=== PATIENT | male | born 1960 | race Caucasian/White ===

== ENCOUNTER 2017-01-31 14:33 | Emergency (ER) | payer OTHER ==
[~2017-01-31] VITALS: Ht 180.3 cm; Wt 79.8 kg
[2017-01-31] MEDS ORDERED: ALBU17IN2 INH (14:43)
[2017-01-31] MEDS ORDERED: BREO1INH INH (14:43)
[2017-01-31] MEDS ORDERED: LISI10TA2 PO (14:43)
[2017-01-31] MEDS ORDERED: OMEP20CA3 PO (14:44)
[2017-01-31] MEDS ORDERED: ASPIRIN 81 MG CHEW TABLET PO ONE (15:15)
[2017-01-31 15:32] LABS: BASO % 0.4 % (0.0-1.0); EOS # 0.2 K/mm3 (0.0-0.50); EOS % 2.2 % (0.0-3.0); LARGE UNSTAINED CELL # 0.2 K/mm3 (0.0-0.4); LARGE UNSTAINED CELL % 2.1 % (0.0-4.0); LYMPH # 1.9 K/mm3 (1.5-4.5); LYMPH % 24.3 % (24.0-44.0); MEAN CORPUSCULAR HEMOGLOBIN 30.9 pg (27.0-33.0); MEAN CORPUSCULAR HGB CONC 34.7 g/dl (32.0-36.5); MEAN CORPUSCULAR VOLUME 89.2 fl (80.0-96.0); MONO # 0.5 K/mm3 (0.0-0.8); MONO % 6.2 % (0.0-5.0); NEUTROPHILS # 4.7 K/mm3 (1.8-7.7); NEUTROPHILS % 64.8 % (36.0-66.0); PLATELET COUNT, AUTOMATED 290 k/mm3 (150-450); RED CELL DISTRIBUTION WIDTH 12.4 % (11.5-14.5); WHITE BLOOD COUNT 7.3 K/mm3 (4.0-10.0)
[2017-01-31 15:53] LABS: ALBUMIN 4.3 GM/DL (3.2-5.2); ALBUMIN/GLOBULIN RATIO 1.43 (1.00-1.93); ALKALINE PHOSPHATASE 58 U/L (45-117); ALT/SGPT 24 U/L (12-78); ANION GAP 6 MEQ/L (8-16); AST/SGOT 15 U/L (15-37); BILIRUBIN,DIRECT 0.2 MG/DL (0.0-0.2); BLOOD UREA NITROGEN 21 MG/DL (7-18); CALCIUM LEVEL 8.6 MG/DL (8.5-10.1); CARBON DIOXIDE LEVEL 30 MEQ/L (21-32); CHLORIDE LEVEL 99 MEQ/L (98-107); CREATININE FOR GFR 1.07 MG/DL (0.70-1.30); GLOMERULAR FILTRATION RATE > 60.0 (>56); GLUCOSE, FASTING 116 MG/DL (70-105); SODIUM LEVEL 135 MEQ/L (136-145); TOTAL PROTEIN 7.3 GM/DL (6.4-8.2)
[2017-01-31] MEDS ORDERED: IPRATROPIUM 0.5MG/ALBUTEROL 2.5MG INH SOL UD 3ML (DUONEB)(J7620) NEB ONE (16:15)
[2017-01-31] MEDS ORDERED: methylPREDNISolone INJ 125 MG/2 ML VIAL (J2930) IV ONE (16:15)
[2017-01-31 17:37] VITALS: BP 104/58
--- NOTE | 2017-01-31 17:58 | REP ---
CT ANGIO CHEST: HISTORY: Chest pain and dyspnea. COMPARISON: None. CONTRAST: 100 mL Isovue-370 FINDINGS: There is excellent visualization of the pulmonary arterial vasculature. There are no focal filling defects present that would be considered consistent with pulmonary emboli. There are no pleural or pericardial effusions. There is no mediastinal or hilar adenopathy. The imaged upper abdomen and imaged osseous structures are within normal limits. Evaluation of the lung palmer show no abnormal nodules, masses or opacities. IMPRESSION: CT findings are within normal limits. Signed by Hitesh Hedrick DO 01/31/2017 06:28 P
--- NOTE | 2017-01-31 18:13 | ECGEPIP ---
Stationary ECG Study [facility] - ED Test Date: 2017-01-31 Pat Name: FLORENCIO BROOKS Department: Room: - Gender: M Clinic Specialist: ct : 1960 Requested By: PATRICIO Cardenas Order Number: [id number] Reading MD: Melvin Zavala Measurements Intervals [place] Rate: 69 P: 67 [place]: 146 QRS: 62 QRSD: 88 T: 60 QT: 387 QTc: 417 Interpretive Statements SINUS RHYTHM Electronically Signed On 01-31-2017 18:12:51 EDT by Melvin Zavala
== END 2017-01-31 18:01 | disposition home or self-care (01) ==
LOC: M ED 16:02
DX: R07.9 Chest pain, unspecified (principal); R06.02 Shortness of breath; J44.9 Chronic obstructive pulmonary disease, unspecified; I10 Essential (primary) hypertension; Z87.891 Personal history of nicotine dependence; Z79.899 Other long term (current) drug therapy; Z79.51 Long term (current) use of inhaled steroids; Z88.1 Allergy status to other antibiotic agents
CPT/HCPCS: 71275; 80048; 80076; 82550; 82553; 83880; 85025; 93005; 93041; 94640; 94760; 96374; 99284; J2930

== ENCOUNTER → 2017-03-15 | Outpatient (CLI) | payer OTHER ==
[~2017-03-15] MED LIST: ALBU17IN2 INH; BREO1INH INH; LISI10TA2 PO; OMEP20CA3 PO
[2017-03-15 10:58] LABS: BASO % 0.4 % (0.0-1.0); EOS # 0.1 K/mm3 (0.0-0.50); EOS % 1.3 % (0.0-3.0); LYMPH # 1.5 K/mm3 (1.5-4.5); LYMPH % 24.7 % (24.0-44.0); MEAN CORPUSCULAR HEMOGLOBIN 30.9 pg (27.0-33.0); MEAN CORPUSCULAR HGB CONC 33.7 g/dl (32.0-36.5); MEAN CORPUSCULAR VOLUME 91.6 fl (80.0-96.0); MONO # 0.4 K/mm3 (0.0-0.8); MONO % 6.9 % (0.0-5.0); NEUTROPHILS # 3.6 K/mm3 (1.8-7.7); NEUTROPHILS % 65.1 % (36.0-66.0); RED CELL DISTRIBUTION WIDTH 12.8 % (11.5-14.5); WHITE BLOOD COUNT 5.6 K/mm3 (4.0-10.0)
[2017-03-15 11:31] LABS: ALBUMIN 4.3 GM/DL (3.2-5.2); ALBUMIN/GLOBULIN RATIO 1.54 (1.00-1.93); ALKALINE PHOSPHATASE 53 U/L (45-117); ALT/SGPT 34 U/L (12-78); ANION GAP 5 MEQ/L (8-16); AST/SGOT 14 U/L (15-37); BILIRUBIN,TOTAL 0.6 MG/DL (0.2-1.0); BLOOD UREA NITROGEN 11 MG/DL (7-18); CALCIUM LEVEL 9.6 MG/DL (8.5-10.1); CARBON DIOXIDE LEVEL 32 MEQ/L (21-32); CHLORIDE LEVEL 100 MEQ/L (98-107); CHOLESTEROL LEVEL 157 MG/DL (<200); CREATININE FOR GFR 1.14 MG/DL (0.70-1.30); GLOMERULAR FILTRATION RATE > 60.0 (>56); GLUCOSE, FASTING 105 MG/DL (70-105); SODIUM LEVEL 137 MEQ/L (136-145); TOTAL PROTEIN 7.1 GM/DL (6.4-8.2); TRIGLYCERIDES LEVEL 61 MG/DL (<150)
[2017-03-15 11:35] LABS: POTASSIUM SERUM 5.4 MEQ/L (3.5-5.1)
== END ==
LOC: M LAB 10:11
PROVIDERS: ATTEND Physician Assistant Medical
DX: I10 Essential (primary) hypertension (principal)

== ENCOUNTER → 2017-03-25 | Outpatient (CLI) | payer OTHER ==
[2017-03-25 11:12] LABS: BASO # 0.1 K/mm3 (0.0-0.2); BASO % 0.9 % (0.0-1.0); EOS # 0.1 K/mm3 (0.0-0.50); EOS % 1.5 % (0.0-3.0); LYMPH # 1.8 K/mm3 (1.5-4.5); LYMPH % 23.1 % (24.0-44.0); MEAN CORPUSCULAR HEMOGLOBIN 30.7 pg (27.0-33.0); MEAN CORPUSCULAR HGB CONC 34.2 g/dl (32.0-36.5); MEAN CORPUSCULAR VOLUME 89.8 fl (80.0-96.0); MONO # 0.6 K/mm3 (0.0-0.8); NEUTROPHILS # 4.5 K/mm3 (1.8-7.7); NEUTROPHILS % 64.4 % (36.0-66.0); RED CELL DISTRIBUTION WIDTH 13.1 % (11.5-14.5); WHITE BLOOD COUNT 6.9 K/mm3 (4.0-10.0)
[2017-03-25 11:53] LABS: ALBUMIN 4.4 GM/DL (3.2-5.2); ALBUMIN/GLOBULIN RATIO 1.69 (1.00-1.93); ALKALINE PHOSPHATASE 49 U/L (45-117); ALT/SGPT 31 U/L (12-78); ANION GAP 8 MEQ/L (8-16); AST/SGOT 29 U/L (15-37); BILIRUBIN,TOTAL 0.9 MG/DL (0.2-1.0); BLOOD UREA NITROGEN 18 MG/DL (7-18); CALCIUM LEVEL 9.2 MG/DL (8.5-10.1); CARBON DIOXIDE LEVEL 29 MEQ/L (21-32); CHLORIDE LEVEL 99 MEQ/L (98-107); CHOLESTEROL LEVEL 140 MG/DL (<200); CREATININE FOR GFR 0.97 MG/DL (0.70-1.30); GLOMERULAR FILTRATION RATE > 60.0 (>56); GLUCOSE, FASTING 84 MG/DL (70-105); POTASSIUM SERUM 3.5 MEQ/L (3.5-5.1); SODIUM LEVEL 136 MEQ/L (136-145); TRIGLYCERIDES LEVEL 53 MG/DL (<150)
== END ==
LOC: M LAB 10:57
PROVIDERS: ATTEND Physician Assistant Medical
DX: I10 Essential (primary) hypertension (principal)

== ENCOUNTER 2017-12-25 14:31 | Emergency (ER) | payer OTHER | END 2017-12-25 17:39 | disposition home or self-care (01) | LOC: M ED 14:31 | DX: J44.1 Chronic obstructive pulmonary disease with (acute) exacerbation (principal); J01.10 Acute frontal sinusitis, unspecified; I10 Essential (primary) hypertension; Z87.891 Personal history of nicotine dependence; F12.10 Cannabis abuse, uncomplicated; Z79.899 Other long term (current) drug therapy; Z88.1 Allergy status to other antibiotic agents | CPT/HCPCS: 99282 ==

== ENCOUNTER → 2018-08-01 | Outpatient (CLI) | payer OTHER ==
[2018-08-01 11:47] LABS: HEMATOCRIT 42.3 % (42.0-52.0); HEMOGLOBIN 14.4 g/dl (13.5-17.5); MEAN CORPUSCULAR HEMOGLOBIN 30.7 pg (27.0-33.0); MEAN CORPUSCULAR VOLUME 90.2 fl (80.0-96.0); PLATELET COUNT, AUTOMATED 254 10^3/uL (150-450); RED BLOOD COUNT 4.69 10^6/uL (4.30-6.10); WHITE BLOOD COUNT 9.7 10^3/uL (4.0-10.0)
[2018-08-01 12:01] LABS: ESTIMATED AVERAGE GLUCOSE 123 MG/DL (60-110); HEMOGLOBIN A1c 5.9 %
[2018-08-01 12:21] LABS: ALBUMIN 3.8 GM/DL (3.2-5.2); ALBUMIN/GLOBULIN RATIO 1.31 (1.00-1.93); ALKALINE PHOSPHATASE 65 U/L (45-117); ALT/SGPT 37 U/L (12-78); ANION GAP 4 MEQ/L (8-16); AST/SGOT 27 U/L (7-37); BILIRUBIN,TOTAL 0.8 MG/DL (0.2-1.0); BLOOD UREA NITROGEN 17 MG/DL (7-18); CALCIUM LEVEL 8.8 MG/DL (8.5-10.1); CARBON DIOXIDE LEVEL 32 MEQ/L (21-32); CHLORIDE LEVEL 103 MEQ/L (98-107); CHOLESTEROL LEVEL 142 MG/DL (<200); CHOLESTEROL RISK RATIO 2.327 (<5); CREATININE FOR GFR 0.96 MG/DL (0.70-1.30); GLOMERULAR FILTRATION RATE > 60.0 (>56); GLUCOSE, FASTING 105 MG/DL (70-100); HDL CHOLESTEROL 61 MG/DL (>40); LDL CHOLESTEROL 70 MG/DL (<100); NON-HDL-C 81 MG/DL; POTASSIUM SERUM 4.5 MEQ/L (3.5-5.1); PROSTATIC SPECIFIC AG MONITOR 2.03 NG/ML (< 4.0); SODIUM LEVEL 139 MEQ/L (136-145); TESTOSTERONE 344 NG/DL (241-827); TOTAL PROTEIN 6.7 GM/DL (6.4-8.2); TRIGLYCERIDES LEVEL 53 MG/DL (<150)
== END ==
LOC: M LAB 11:13
DX: I10 Essential (primary) hypertension (principal); J44.9 Chronic obstructive pulmonary disease, unspecified; N40.0 Benign prostatic hyperplasia without lower urinary tract symptoms
CPT/HCPCS: 71046

== ENCOUNTER 2018-11-28 09:44 | Emergency (ER) | payer OTHER ==
[~2018-11-28] VITALS: Ht 180.3 cm; Wt 77.3 kg
[~2018-11-28 09:44] MED LIST changes: +AUGM875T28 PO
[2018-11-28 10:23] LABS: BASO % 0.2 % (0.0-1.0); EOS % 0.1 % (0.0-3.0); HEMATOCRIT 43.6 % (42.0-52.0); HEMOGLOBIN 15.7 g/dl (13.5-17.5); LYMPH # 1.2 10^3/uL (1.5-4.5); LYMPH % 9.8 % (24.0-44.0); MEAN CORPUSCULAR HEMOGLOBIN 31.3 pg (27.0-33.0); MONO # 0.8 10^3/uL (0.0-0.8); MONO % 6.6 % (0.0-5.0); NEUTROPHILS # 9.9 10^3/uL (1.8-7.7); NEUTROPHILS % 82.9 % (36.0-66.0); PLATELET COUNT, AUTOMATED 337 10^3/uL (150-450); RED BLOOD COUNT 5.01 10^6/uL (4.30-6.10); WHITE BLOOD COUNT 11.9 10^3/uL (4.0-10.0)
[2018-11-28] MEDS ORDERED: MORPHINE 4 MG/ML 1ML VIAL/SYRINGE (J2270) IV ONE (10:30)
[2018-11-28] MEDS ORDERED: ONDANSETRON 4MG/2ML VIAL (J2405) IV ONE (10:30)
[2018-11-28] MEDS ORDERED: NS 1,000 ML IV ONE (10:30)
[2018-11-28 10:49] LABS: ALBUMIN 4.4 GM/DL (3.2-5.2); ALT/SGPT 29 U/L (12-78); BILIRUBIN,DIRECT 0.3 MG/DL (0.0-0.2); BILIRUBIN,TOTAL 1.2 MG/DL (0.2-1.0); BLOOD UREA NITROGEN 16 MG/DL (7-18); CARBON DIOXIDE LEVEL 24 MEQ/L (21-32); CHLORIDE LEVEL 99 MEQ/L (98-107); CREATININE FOR GFR 1.18 MG/DL (0.70-1.30); GLOMERULAR FILTRATION RATE > 60.0 (>56); GLUCOSE, FASTING 152 MG/DL (70-100); LIPASE 128 U/L (73-393); POTASSIUM SERUM 3.1 MEQ/L (3.5-5.1); SODIUM LEVEL 136 MEQ/L (136-145); TOTAL PROTEIN 7.7 GM/DL (6.4-8.2)
[2018-11-28] MEDS: GASTROGRAFIN SOLUTION 30ML PO SCH ×2 (10:50→11:20)
[2018-11-28] MEDS ORDERED: ISOVUE-370 76% 100ML VIAL (Q9967) As Ordered ONE (12:00)
--- NOTE | 2018-11-28 13:38 | REP ---
CT ABDOMEN AND PELVIS WITH IV AND ORAL CONTRAST: 11/28/2018. Clinical history: Generalized abdominal pain, vomiting. Technique: Oral Gastrografin mixture per our protocol for bowel contrast and bolus of 100 mL Isovue 370 scanning through the abdomen and pelvis with coronal and sagittal reconstructions provided. Findings: CT abdomen: The lung bases are clear. The heart is not enlarged and there is no pericardial thickening or effusion. I see no definite hiatal hernia. Stomach filled with retained contrast which extends into the mid jejunum. The liver, spleen, gallbladder, pancreas and the adrenal glands were normal. No calcified gallstones. Kidneys show no stone, cyst, solid mass, perinephric fluid, hydronephrosis or hydroureter on either side. No ureteral stone. The lung windows for all CT slices of the abdomen pelvis show no perforation or free air. No abscess. Abdominal portions of the colon shows scattered stool and gas on the right. The transverse colon, splenic flexure and left colon are collapsed and smaller caliber. I do not see inflammatory changes in the adjacent fat. Small bowel loops show a few air-fluid levels in proximal loops which are mildly prominent but not significantly dilated and with no sign of obstruction or wall thickening. Most of them are fluid filled. I do not see thickened wall. The bone windows show degenerative disc changes and vacuum phenomenon at L5-S1, minor degenerative disc changes in the lower thoracic spine. No acute compression deformity, spondylolysis or other acute finding. CT pelvis: The visualized bones are grossly intact, other than one small bone cyst in the femoral neck on the right about 12 mm. The distal left colon and sigmoid are collapsed. Stool and gas in the rectum. There is no sign of diverticulitis with just a few scattered diverticula in the sigmoid. The distal left colon and proximal sigmoid are collapsed. Stool and gas in the distal sigmoid and rectum. There is no ventral or inguinal hernia nor pathologic sized inguinal adenopathy. No inflammatory changes about the cecum. Prostate with calcifications. Bladder only minimally filled with wall thickness difficult to municipal court judge. No mass or stone. Impression: 1. Transverse and left colon as well as most of the splenic flexure are collapsed with thickened wall down to the proximal sigmoid. I do not see significant inflammatory changes in the adjacent fat but this may reflect some mild colitis. No diverticulitis. 2. Small bowel loops fluid-filled with a few air-fluid levels proximally that may reflect gastroenteritis or focal ileus. 3. No ascites, abscess, free air, adenopathy or abnormalities of the solid organs in the upper abdomen. No hiatal hernia. No ventral or inguinal hernia. Electronically Signed by Chinedu Orosco MD 11/28/2018 09:20 P
[2018-11-28] MEDS ORDERED: POTASSIUM CHLORIDE 10 MEQ SR TABLET PO ONE (15:00)
[2018-11-28] MEDS ORDERED: metroNIDAZOLE (FLAGYL) 500 MG TAB PO ONE (15:15)
[2018-11-28] MEDS ORDERED: CIPROFLOXACIN 500 MG TAB PO ONE (15:15)
[2018-11-28] MEDS ORDERED: CIPR-249 PO (16:21)
[2018-11-28] MEDS ORDERED: FLAG500T PO (16:22)
[2018-11-28] MEDS ORDERED: ZOFR4TAB16 PO (16:22)
[2018-11-28 16:48] VITALS: BP 122/62
== END 2018-11-28 17:43 | disposition home or self-care (01) ==
LOC: M ED 09:44 → EDBD 09:44 → M ED 17:43
DX: K52.9 Noninfective gastroenteritis and colitis, unspecified (principal); J44.9 Chronic obstructive pulmonary disease, unspecified; J45.909 Unspecified asthma, uncomplicated; K21.9 Gastro-esophageal reflux disease without esophagitis; Z79.899 Other long term (current) drug therapy; Z88.1 Allergy status to other antibiotic agents; F17.210 Nicotine dependence, cigarettes, uncomplicated
CPT/HCPCS: 74177; 80048; 80076; 83690; 85025; 93041; 96374; 96375; 99285; J2270; J2405; Q9963; Q9967

== ENCOUNTER 2019-09-09 21:02 | Emergency (ER) | payer OTHER ==
[~2019-09-09] VITALS: Ht 180.3 cm; Wt 77.0 kg
[~2019-09-09 21:02] MED LIST changes: +CIPR-249 PO; +FLAG500T PO; +LISI10TA15 PO; -LISI10TA2 PO; +OMEP-172 PO; -OMEP20CA3 PO; +ZOFR4TAB16 PO
[2019-09-09 21:48] LABS: HEMATOCRIT 40.5 % (42.0-52.0); HEMOGLOBIN 13.7 g/dl (13.5-17.5); MEAN CORPUSCULAR HEMOGLOBIN 31.3 pg (27.0-33.0); MEAN CORPUSCULAR HGB CONC 33.8 g/dl (32.0-36.5); MEAN CORPUSCULAR VOLUME 92.5 fl (80.0-96.0); PLATELET COUNT, AUTOMATED 248 10^3/uL (150-450); RED BLOOD COUNT 4.38 10^6/uL (4.30-6.10); WHITE BLOOD COUNT 13.1 10^3/uL (4.0-10.0)
[2019-09-09 22:09] LABS: ALBUMIN 4.1 GM/DL (3.2-5.2); ALT/SGPT 70 U/L (12-78); BILIRUBIN,TOTAL 0.9 MG/DL (0.2-1.0); BLOOD UREA NITROGEN 15 MG/DL (7-18); CALCIUM LEVEL 9.6 MG/DL (8.5-10.1); CARBON DIOXIDE LEVEL 25 MEQ/L (21-32); CHLORIDE LEVEL 105 MEQ/L (98-107); CREATININE FOR GFR 1.02 MG/DL (0.70-1.30); GLOMERULAR FILTRATION RATE > 60.0 (>56); GLUCOSE, FASTING 126 MG/DL (70-100); LIPASE 78 U/L (73-393); POTASSIUM SERUM 3.5 MEQ/L (3.5-5.1); SODIUM LEVEL 142 MEQ/L (136-145); TOTAL PROTEIN 6.9 GM/DL (6.4-8.2)
[2019-09-09] MEDS ORDERED: NS 1,000 ML IV ONE (23:00)
[2019-09-09] MEDS ORDERED: ONDANSETRON 4MG/2ML VIAL (J2405) IV ONE (23:00)
[2019-09-09] MEDS ORDERED: MORPHINE 4 MG/ML 1ML VIAL/SYRINGE (J2270) IV ONE (23:00)
[2019-09-09] MEDS ORDERED: ISOVUE-370 76% 100ML VIAL (Q9967) As Ordered ONE (23:44)
--- NOTE | 2019-09-10 00:53 | REPVR ---
PROCEDURE INFORMATION: Exam: CT Abdomen And Pelvis With Contrast Exam date and time: 09/09/2019 12:05 AM Age: 59 years old Clinical history: Abdominal pain; Localized; Left lower quadrant (llq); Additional info: Llq tender, nvd, HX divertic TECHNIQUE: Imaging protocol: Computed tomography of the abdomen and pelvis with intravenous contrast. Radiation optimization: All CT scans at this facility use at least one of these dose optimization techniques: automated exposure control; mA and/or kV adjustment per patient size (includes targeted exams where dose is matched to clinical indication); or iterative reconstruction. Contrast material: ISOVUE 370; Contrast volume: 100 ml; Contrast route: IV; COMPARISON: CT ABD/PEL W/IV ORAL CONTRAS 11/28/2018 12:24 PM FINDINGS: Liver: Normal. No mass. Gallbladder and bile ducts: Normal. No calcified stones. No ductal dilation. Pancreas: Normal. No ductal dilation. Spleen: Normal. No splenomegaly. Adrenals: Normal. No mass. Kidneys and ureters: Normal. No hydronephrosis. Stomach and bowel: Unremarkable. No obstruction. No mucosal thickening. Appendix: No evidence of appendicitis. Intraperitoneal space: Unremarkable. No free air. No significant fluid collection. Vasculature: Unremarkable. No abdominal aortic aneurysm. Lymph nodes: Unremarkable. No enlarged lymph nodes. Bladder: Mild urinary bladder wall thickening. Reproductive: Unremarkable as visualized. Bones/joints: There are degenerative changes in the spine and pelvis. Soft tissues: Unremarkable. IMPRESSION: 1. Mild urinary bladder wall thickening suggesting cystitis. 2. No acute inflammatory process in the GI tract or bowel obstruction. Electronically signed by: Shad Leon On 09/10/2019 00:52:40 AM
[2019-09-10] MEDS ORDERED: DICYCLOMINE 10 MG CAP PO ONE (01:45)
[2019-09-10] MEDS ORDERED: DICY10CA13 PO (01:53)
[2019-09-10] MEDS ORDERED: REGL10TA6 PO (01:53)
[2019-09-10 02:02] VITALS: BP 121/64
== END 2019-09-10 02:04 | disposition home or self-care (01) ==
LOC: M ED 21:02
DX: R10.84 Generalized abdominal pain (principal); D72.829 Elevated white blood cell count, unspecified; R11.10 Vomiting, unspecified; R19.7 Diarrhea, unspecified; I10 Essential (primary) hypertension; J44.9 Chronic obstructive pulmonary disease, unspecified; K21.9 Gastro-esophageal reflux disease without esophagitis; K57.92 Diverticulitis of intestine, part unspecified, without perforation or abscess without bleeding; Z88.1 Allergy status to other antibiotic agents; Z79.899 Other long term (current) drug therapy
CPT/HCPCS: 74177; 80053; 81001; 83690; 85027; 87086; 96361; 96374; 96375; 99284; J2270; J2405; Q9967

== ENCOUNTER 2019-09-14 02:36 | Emergency (ER) | payer OTHER ==
[~2019-09-14] VITALS: Ht 180.3 cm; Wt 72.9 kg
[~2019-09-14 02:36] MED LIST changes: +DICY10CA13 PO; +REGL10TA6 PO
[2019-09-14 04:31] LABS: BASO % 0.3 % (0.0-1.0); EOS # 0.1 10^3/uL (0.0-0.5); EOS % 0.5 % (0.0-3.0); HEMATOCRIT 44.3 % (42.0-52.0); HEMOGLOBIN 15.4 g/dl (13.5-17.5); LYMPH # 1.7 10^3/uL (1.5-5.0); LYMPH % 14.9 % (24.0-44.0); MEAN CORPUSCULAR HEMOGLOBIN 30.7 pg (27.0-33.0); MEAN CORPUSCULAR HGB CONC 34.8 g/dl (32.0-36.5); MEAN CORPUSCULAR VOLUME 88.4 fl (80.0-96.0); MONO # 1.2 10^3/uL (0.0-0.8); MONO % 10.4 % (0.0-5.0); NEUTROPHILS # 8.5 10^3/uL (1.5-8.5); NEUTROPHILS % 73.5 % (36.0-66.0); PLATELET COUNT, AUTOMATED 272 10^3/uL (150-450); RED BLOOD COUNT 5.01 10^6/uL (4.30-6.10); WHITE BLOOD COUNT 11.5 10^3/uL (4.0-10.0)
[2019-09-14 04:48] LABS: INR 1.11
[2019-09-14 04:49] LABS: PARTIAL THROMBOPLASTIN TIME 26.3 SECONDS (25.0-38.4)
[2019-09-14 05:09] LABS: ALBUMIN 3.8 GM/DL (3.2-5.2); ALT/SGPT 45 U/L (12-78); BILIRUBIN,DIRECT 0.3 MG/DL (0.0-0.2); BILIRUBIN,TOTAL 1.4 MG/DL (0.2-1.0); BLOOD UREA NITROGEN 12 MG/DL (7-18); CALCIUM LEVEL 8.8 MG/DL (8.5-10.1); CARBON DIOXIDE LEVEL 29 MEQ/L (21-32); CHLORIDE LEVEL 101 MEQ/L (98-107); CK-MB VALUE MASS 1.2 NG/ML (<3.6); CPK CREATINE PHOSPHOKINASE 88 U/L (39-308); CREATININE FOR GFR 0.86 MG/DL (0.70-1.30); GLOMERULAR FILTRATION RATE > 60.0 (>56); GLUCOSE, FASTING 103 MG/DL (70-100); LIPASE 90 U/L (73-393); MB/CK RELATIVE INDEX 1.36 (< OR =4); POTASSIUM SERUM 3.4 MEQ/L (3.5-5.1); SODIUM LEVEL 139 MEQ/L (136-145); TOTAL PROTEIN 6.7 GM/DL (6.4-8.2); TROPONIN I < 0.02 NG/ML (< 0.10)
[2019-09-14] MEDS ORDERED: PANTOPRAZOLE 40MG INJ (PROTONIX) (C9113) IV ONE (05:15)
[2019-09-14] MEDS ORDERED: NS 1,000 ML IV ONE (05:15)
[2019-09-14] MEDS ORDERED: GI COCKTAIL 50ML BTL(HYOSCYAMINE/MAALOX/LIDOCAINE VISCOUS)(1:3:1) PO ONE (05:15)
--- NOTE | 2019-09-14 08:02 | ECGEPIP ---
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
[2019-09-14 10:51] VITALS: BP 146/80
== END 2019-09-14 10:58 | disposition home or self-care (01) ==
LOC: M ED 02:36
DX: K52.9 Noninfective gastroenteritis and colitis, unspecified (principal); I10 Essential (primary) hypertension; K21.9 Gastro-esophageal reflux disease without esophagitis; J45.909 Unspecified asthma, uncomplicated; F17.210 Nicotine dependence, cigarettes, uncomplicated; Z88.1 Allergy status to other antibiotic agents; Z79.51 Long term (current) use of inhaled steroids; Z79.84 Long term (current) use of oral hypoglycemic drugs; Z79.899 Other long term (current) drug therapy
CPT/HCPCS: 80048; 80076; 82550; 82553; 83605; 83690; 85025; 85610; 85730; 87507; 93005; 96374; 99284; C9113

== ENCOUNTER 2021-05-14 23:56 | Emergency (ER) | payer OTHER ==
[~2021-05-14] VITALS: Ht 180.3 cm; Wt 77.7 kg
[~2021-05-14 23:56] MED LIST changes: -OMEP-172 PO; +OMEP1CAP73 PO
[2021-05-15] MEDS ORDERED: AMOX500C PO (00:09)
[2021-05-15 06:41] LABS: BASO % 0.1 % (0.0-1.0); HEMATOCRIT 45.8 % (42.0-52.0); HEMOGLOBIN 15.9 g/dl (13.5-17.5); LYMPH # 0.9 10^3/uL (1.5-5.0); LYMPH % 11.5 % (24.0-44.0); MEAN CORPUSCULAR HEMOGLOBIN 30.6 pg (27.0-33.0); MEAN CORPUSCULAR HGB CONC 34.7 g/dl (32.0-36.5); MEAN CORPUSCULAR VOLUME 88.1 fl (80.0-96.0); MONO # 0.3 10^3/uL (0.0-0.8); MONO % 4.2 % (2.0-8.0); NEUTROPHILS # 6.6 10^3/uL (1.5-8.5); NEUTROPHILS % 83.9 % (36.0-66.0); PLATELET COUNT, AUTOMATED 292 10^3/uL (150-450); WHITE BLOOD COUNT 7.9 10^3/uL (4.0-10.0)
[2021-05-15] MEDS ORDERED: PANTOPRAZOLE 40MG VIAL (C9113 PER 1) IV ONE (06:50)
[2021-05-15] MEDS ORDERED: NS 1,000 ML IV ONE (06:50)
[2021-05-15 07:16] LABS: ALBUMIN 4.6 GM/DL (3.2-5.2); ALT/SGPT 31 U/L (12-78); BILIRUBIN,DIRECT 0.2 MG/DL (0.0-0.2); BILIRUBIN,TOTAL 0.7 MG/DL (0.2-1.0); BLOOD UREA NITROGEN 24 MG/DL (7-18); CALCIUM LEVEL 9.6 MG/DL (8.8-10.2); CARBON DIOXIDE LEVEL 26 MEQ/L (21-32); CHLORIDE LEVEL 103 MEQ/L (98-107); CREATININE FOR GFR 1.05 MG/DL (0.70-1.30); GLOMERULAR FILTRATION RATE > 60.0 (>49); GLUCOSE, FASTING 119 MG/DL (70-100); LIPASE 259 U/L (73-393); POTASSIUM SERUM 4.4 MEQ/L (3.5-5.1); SODIUM LEVEL 138 MEQ/L (136-145); TOTAL PROTEIN 8.3 GM/DL (6.4-8.2)
[2021-05-15 08:38] VITALS: BP 160/86
== END 2021-05-15 08:41 | disposition home or self-care (01) ==
LOC: M ED 23:56
DX: R10.84 Generalized abdominal pain (principal); E86.0 Dehydration; R94.4 Abnormal results of kidney function studies; I10 Essential (primary) hypertension; K52.9 Noninfective gastroenteritis and colitis, unspecified; J44.9 Chronic obstructive pulmonary disease, unspecified; K21.9 Gastro-esophageal reflux disease without esophagitis; Z87.891 Personal history of nicotine dependence; Z88.8 Allergy status to other drugs, medicaments and biological substances; Z79.899 Other long term (current) drug therapy
CPT/HCPCS: 80048; 80076; 81001; 83690; 85025; 96361; 96374; 99284; C9113

== ENCOUNTER → 2021-06-25 | Outpatient (CLI) | payer OTHER ==
[~2021-06-25] MED LIST changes: +AMOX500C PO
[2021-06-25 12:59] LABS: HEMATOCRIT 43.2 % (42.0-52.0); HEMOGLOBIN 14.7 g/dl (13.5-17.5); MEAN CORPUSCULAR HEMOGLOBIN 30.6 pg (27.0-33.0); PLATELET COUNT, AUTOMATED 305 10^3/uL (150-450); WHITE BLOOD COUNT 9.9 10^3/uL (4.0-10.0)
[2021-06-25 13:36] LABS: ALBUMIN 3.9 GM/DL (3.2-5.2); ALT/SGPT 25 U/L (12-78); BILIRUBIN,TOTAL 0.7 MG/DL (0.2-1.0); BLOOD UREA NITROGEN 16 MG/DL (7-18); CARBON DIOXIDE LEVEL 29 MEQ/L (21-32); CHLORIDE LEVEL 105 MEQ/L (98-107); CHOLESTEROL LEVEL 179 MG/DL (<200); CHOLESTEROL RISK RATIO 3.977 (<5); CREATININE FOR GFR 0.95 MG/DL (0.70-1.30); GLOMERULAR FILTRATION RATE > 60.0 (>49); GLUCOSE, FASTING 96 MG/DL (70-100); HDL CHOLESTEROL 45 MG/DL (>40); LDL CHOLESTEROL 119 MG/DL (<100); NON-HDL-C 134 MG/DL; POTASSIUM SERUM 4.2 MEQ/L (3.5-5.1); PROSTATIC SPECIFIC AG MONITOR 3.92 NG/ML (< 4.00); SODIUM LEVEL 140 MEQ/L (136-145); TESTOSTERONE 361 NG/DL (241-827); THYROID STIMULATING HORMONE 0.624 uIU/ML (0.358-3.740); TOTAL PROTEIN 6.9 GM/DL (6.4-8.2); TRIGLYCERIDES LEVEL 77 MG/DL (<150)
[2021-06-25 13:41] LABS: HEMOGLOBIN A1c 5.7 %
--- NOTE | 2021-06-25 14:19 | REP ---
INDICATION: HTN,FATIGUE,HYPOTHYROID-LABS AND EKG FIRST. COMPARISON: 08/01/2018 the latest prior FINDINGS: The superior mediastinal structures are midline. The cardiac silhouette is unremarkable in size, shape, and position. The diaphragmatic surfaces of the lungs are regular, and the costophrenic angles are clear. The pulmonary palmer are clear. The imaged osseous structures are intact. IMPRESSION: There is no acute cardiopulmonary disease. <Electronically signed by Hitesh Hedrick > 06/25/21 [id number]
--- NOTE | 2021-06-25 19:25 | ECGEPIP ---
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
== END ==
LOC: M LAB 12:26
PROVIDERS: ATTEND Family Medicine
DX: E03.9 Hypothyroidism, unspecified (principal); R53.83 Other fatigue; I10 Essential (primary) hypertension

== ENCOUNTER 2021-10-17 17:11 | Emergency (ER) | payer OTHER ==
[~2021-10-17] VITALS: Ht 180.3 cm; Wt 78.6 kg
[~2021-10-17 17:11] MED LIST changes: -LISI10TA15 PO; +LISI10TA24 PO
[2021-10-17 17:13] VITALS: BP 151/83
[2021-10-17] MEDS ORDERED: LISI5TAB11 (17:19)
[2021-10-17] MEDS ORDERED: FLUT1BLS5 (17:19)
== END 2021-10-17 19:05 | disposition home or self-care (01) ==
LOC: M ED 17:11
DX: T18.108A Unspecified foreign body in esophagus causing other injury, initial encounter (principal); I10 Essential (primary) hypertension; J44.9 Chronic obstructive pulmonary disease, unspecified; Z88.1 Allergy status to other antibiotic agents

== ENCOUNTER → 2021-11-25 | Outpatient (CLI) | payer OTHER ==
[~2021-11-25] MED LIST changes: +FLUT1BLS5; +LISI5TAB11
== END ==
LOC: M RAD 14:46
PROVIDERS: ATTEND Family Medicine
DX: M19.011 Primary osteoarthritis, right shoulder (principal)

== ENCOUNTER 2025-01-17 19:41 | Emergency (ER) | payer OTHER ==
[~2025-01-17] VITALS: Ht 180.3 cm; Wt 89.5 kg
[~2025-01-17 19:41] MED LIST changes: +DICY-61 PO; -DICY10CA13 PO
[2025-01-17 20:26] LABS: BASO % 0.3 % (0.0-1.0); EOS % 0.1 % (0.0-3.0); HEMATOCRIT 47.3 % (42.0-52.0); HEMOGLOBIN 16.2 g/dl (13.5-17.5); LYMPH # 1.7 10^3/uL (1.5-5.0); LYMPH % 14.8 % (24.0-44.0); MEAN CORPUSCULAR HEMOGLOBIN 30.2 pg (27.0-33.0); MEAN CORPUSCULAR HGB CONC 34.2 g/dl (32.0-36.5); MEAN CORPUSCULAR VOLUME 88.1 fl (80.0-96.0); MONO # 0.9 10^3/uL (0.0-0.8); MONO % 8.2 % (2.0-8.0); NEUTROPHILS # 8.7 10^3/uL (1.5-8.5); NEUTROPHILS % 76.2 % (36.0-66.0); PLATELET COUNT, AUTOMATED 328 10^3/uL (150-450); RED BLOOD COUNT 5.37 10^6/uL (4.30-6.10); WHITE BLOOD COUNT 11.4 10^3/uL (4.0-10.0)
[2025-01-17 20:47] LABS: LIPASE 26 U/L (12-53)
[2025-01-17 20:49] LABS: ALBUMIN 4.3 G/DL (3.2-5.2); ALKALINE PHOSPHATASE 72 U/L (40-129); ALT/SGPT 24 U/L (7.0-40); AST/SGOT 20 U/L (<34); BILIRUBIN,DIRECT 0.4 MG/DL (<0.4); BILIRUBIN,TOTAL 1.4 MG/DL (0.3-1.2); BLOOD UREA NITROGEN 19 MG/DL (9-23); CALCIUM LEVEL 9.8 MG/DL (8.3-10.6); CARBON DIOXIDE LEVEL 27 MMOL/L (20-31); CHLORIDE LEVEL 100 MMOL/L (98-107); CREATININE FOR GFR 0.91 MG/DL (0.70-1.30); GLOMERULAR FILTRATION RATE > 90.0 (>49); GLUCOSE, FASTING 109 MG/DL (74-106); POTASSIUM SERUM 4.1 MMOL/L (3.5-5.1); SODIUM LEVEL 140 MMOL/L (136-145); TOTAL PROTEIN 7.6 G/DL (5.7-8.2)
[2025-01-17 21:10] LABS: KETONE, URINE AUTO RFX 1+ mg/dL (NEGATIVE); LEUKOCYTE ESTERASE UR AUTO RFX NEGATIVE (NEGATIVE); MUCUS, URINE RFX LARGE (NEGATIVE); NITRITE, URINE AUTO RFX NEGATIVE (NEGATIVE); RBC, URINE AUTO RFX 1 /HPF (0-3); SQUAM EPITHELIAL CELL UR AURFX 1 /HPF (0-6); WBC, URINE AUTO RFX 1 /HPF (0-3)
[2025-01-17 21:42] VITALS: TEMP 98.7
[2025-01-17] MEDS: NS (Normal Saline) 0.9% 1,000 ML IV ONE (23:10)
[2025-01-17] MEDS: PANTOPRAZOLE 40MG VIAL IV ONE (23:26)
[2025-01-17] MEDS: ONDANSETRON 4MG 2ML VIAL IV ONE (23:26)
[2025-01-17] MEDS: KETOROLAC 30 MG/ML 1ML VIAL IV ONE (23:26)
[2025-01-18] MEDS ORDERED: ISOVUE-370 76% 100ML VIAL As Ordered ONE (00:16)
[2025-01-18 02:30] VITALS: BP 149/74
[2025-01-18 02:31] VITALS: O2SAT 95
[2025-01-18] MEDS ORDERED: ONDA-282 PO (02:31)
== END 2025-01-18 02:48 | disposition home or self-care (01) ==
LOC: M ED 19:41
DX: A09 Infectious gastroenteritis and colitis, unspecified (principal); K21.9 Gastro-esophageal reflux disease without esophagitis; I10 Essential (primary) hypertension; J44.9 Chronic obstructive pulmonary disease, unspecified; Z88.1 Allergy status to other antibiotic agents; Z79.51 Long term (current) use of inhaled steroids; Z79.899 Other long term (current) drug therapy
CPT/HCPCS: 74177; 80048; 80076; 81001; 83690; 85025; 87486; 87581; 87633; 87798; 96361; 96374; 99284; J1885; J2405; J2470; Q9967

== ENCOUNTER 2025-01-20 16:36 | Emergency (ER) | payer OTHER ==
[~2025-01-20 16:36] MED LIST changes: +ONDA-282 PO
[2025-01-20 18:49] LABS: BASO % 0.3 % (0.0-1.0); EOS # 0.1 10^3/uL (0.0-0.5); EOS % 0.8 % (0.0-3.0); HEMATOCRIT 43.6 % (42.0-52.0); HEMOGLOBIN 15.4 g/dl (13.5-17.5); LYMPH # 2.8 10^3/uL (1.5-5.0); LYMPH % 25.3 % (24.0-44.0); MEAN CORPUSCULAR HEMOGLOBIN 30.6 pg (27.0-33.0); MEAN CORPUSCULAR HGB CONC 35.3 g/dl (32.0-36.5); MEAN CORPUSCULAR VOLUME 86.5 fl (80.0-96.0); MONO # 0.9 10^3/uL (0.0-0.8); MONO % 8.4 % (2.0-8.0); NEUTROPHILS # 7.1 10^3/uL (1.5-8.5); NEUTROPHILS % 64.9 % (36.0-66.0); PLATELET COUNT, AUTOMATED 305 10^3/uL (150-450); RED BLOOD COUNT 5.04 10^6/uL (4.30-6.10); WHITE BLOOD COUNT 10.9 10^3/uL (4.0-10.0)
[2025-01-20 18:56] LABS: LIPASE 29 U/L (12-53)
[2025-01-20 19:00] LABS: ALBUMIN 3.9 G/DL (3.2-5.2); ALKALINE PHOSPHATASE 62 U/L (40-129); ALT/SGPT 21 U/L (7.0-40); AST/SGOT 15 U/L (<34); BILIRUBIN,DIRECT 0.5 MG/DL (<0.4); BILIRUBIN,TOTAL 1.4 MG/DL (0.3-1.2); BLOOD UREA NITROGEN 14 MG/DL (9-23); CALCIUM LEVEL 9.3 MG/DL (8.3-10.6); CARBON DIOXIDE LEVEL 28 MMOL/L (20-31); CHLORIDE LEVEL 102 MMOL/L (98-107); CREATININE FOR GFR 0.88 MG/DL (0.70-1.30); GLOMERULAR FILTRATION RATE > 90.0 (>49); GLUCOSE, FASTING 113 MG/DL (74-106); POTASSIUM SERUM 3.3 MMOL/L (3.5-5.1); SODIUM LEVEL 140 MMOL/L (136-145); TOTAL PROTEIN 6.7 G/DL (5.7-8.2)
[2025-01-20] MEDS: ONDANSETRON 4MG 2ML VIAL IV ONE (19:53)
[2025-01-20] MEDS: KETOROLAC 30 MG/ML 1ML VIAL IV ONE (19:57)
[2025-01-20] MEDS ORDERED: ISOVUE-370 76% 100ML VIAL As Ordered ONE (20:13)
[2025-01-20] MEDS: PANTOPRAZOLE 40MG VIAL IV ONE (23:35)
[2025-01-20] MEDS: FAMOTIDINE 20 MG TAB PO ONE (23:35)
[2025-01-20] MEDS: NS (Normal Saline) 0.9% 1,000 ML IV ONE (23:35)
[2025-01-20] MEDS: SUCRALFATE SUSP 1GM/10ML UD PO ONE (23:35)
[2025-01-21 01:08] LABS: CPK CREATINE PHOSPHOKINASE 92 U/L (46-171)
[2025-01-21] MEDS: diphenhydrAMINE 50MG/ML VIAL IV ONE (01:17)
[2025-01-21 01:42] LABS: CK-MB VALUE MASS < 1.0 NG/ML (<3.6); CPK CREATINE PHOSPHOKINASE 107 U/L (46-171); MB/CK RELATIVE INDEX 0.93 (< OR =4)
[2025-01-21 02:00] LABS: CK-MB VALUE MASS < 1.0 NG/ML (<3.6); MB/CK RELATIVE INDEX 1.08 (< OR =4)
[2025-01-21] MEDS ORDERED: CARA1TAB6 PO (02:01)
[2025-01-21] MEDS ORDERED: OMEP-173 PO (02:01)
[2025-01-21 02:09] VITALS: BP 140/82
[2025-01-21 02:11] VITALS: TEMP 99.2
[2025-01-21 02:15] VITALS: O2SAT 94
== END 2025-01-21 02:31 | disposition home or self-care (01) ==
LOC: EDBD 16:36 → M ED 16:36
DX: K30 Functional dyspepsia (principal); I10 Essential (primary) hypertension; F12.10 Cannabis abuse, uncomplicated; F10.10 Alcohol abuse, uncomplicated; Z88.1 Allergy status to other antibiotic agents; Z79.51 Long term (current) use of inhaled steroids; Z79.899 Other long term (current) drug therapy
CPT/HCPCS: 74177; 80048; 80076; 82550; 82553; 83690; 84484; 85025; 93005; 96374; 96375; 99285; J1200; J1885; J2405; J2470; Q9967